=== PATIENT | male | born 1975 | race Caucasian/White ===

== ENCOUNTER 2017-07-08 18:37 | Emergency (ER) | payer SELFPAY ==
[~2017-07-08] VITALS: Ht 190.5 cm; Wt 110.0 kg
[~2017-07-08 18:37] MED LIST: COUM5TAB PO; ENOX100P SQ
[2017-07-08] MEDS ORDERED: IOHEXOL 350 MG/ML 10 ML VIAL (for RAD DIAG) IVCONTRAST ONE (18:38)
[2017-07-08 19:10] VITALS: BP 134/88; PULSE 136; RESP 26; TEMP 98.3; O2SAT 97
[2017-07-08] MEDS ORDERED: SODIUM CHLOR 0.9% 1000 ML INJ 1,000 ML IV SCH ×2 (20:35)
--- NOTE | 2017-07-08 20:39 | PD ---
HPI Chief Complaint: Respiratory Symptoms Time Seen by Provider: 20:32 Travel History International Travel<30 days: No Contact w/Intl Traveler<30days: No Traveled to known affect area: No History of Present Illness HPI This is a 41-year-old male who presents for evaluation of cough, shortness of breath. Symptoms started 3 weeks ago. The cough is dry but occasionally productive yellow sputum. He reports that he was seen at an outside urgent care 8 days ago, diagnosed with pneumonia and prescribed ciprofloxacin for 7 days, prednisone for 5 days and albuterol tablets. Symptoms have persisted despite continuing antibiotic therapy and this is what prompted evaluation today. He reports that initially 3 weeks ago he was having fevers but none this week last week. He endorses some sharp chest pain when he coughs and breathes in deep. 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 He used to be treated with Coumadin however he was incarcerated for 4 years, released in December 2016, not currently under the therapy of any physician and not currently anticoagulated. He has no known history of hypercoagulopathy that he is aware of. Denies any history of PE. Denies any lower extremity edema. He has no other complaints at this time. PFSH Past Medical History Cancer: No Cardiovascular Problems: No Deep Vein Thrombosis: Yes Endocrine: No Genitourinary: No Musculoskeletal: No Neurologic: No Psychiatric: No Reproductive: No Respiratory: No Immunizations Current: No Social History Alcohol Use: Yes (VERY RARELY) Tobacco Use: Yes (3 PPD) Substance Use: Yes (POT AND COCAINE) Allergies-Medications (Allergen,Severity, Reaction): Coded Allergies: No Known Allergies (Verified Adverse Reaction, Unknown, 07/08/17) Reported Meds & Prescriptions Reported Meds & Active Scripts Active Reported Lovenox (Enoxaparin Sodium) 100 Mg/Ml Inj 100 Mg SQ BID discontinue when inr is greater than 3 Coumadin (Warfarin Sodium) 5 Mg Tab 5 Mg PO DAILY Review of Systems Except as stated in HPI: all other systems reviewed are Neg Physical Exam Narrative GENERAL: Well-developed well-nourished male in no acute distress. Tachycardic. SKIN: Warm and dry. HEAD: Atraumatic. Normocephalic. EYES: Pupils equal and round. No scleral icterus. No injection or drainage. ENT: No nasal bleeding or discharge. Mucous membranes pink and moist. Thrush noted in the oropharynx. NECK: Trachea midline. No JVD. CARDIOVASCULAR: Regular rate and rhythm. No murmur appreciated. RESPIRATORY: No accessory muscle use. Coarse breath sounds bilaterally. GASTROINTESTINAL: Abdomen soft, non-tender, nondistended. Hepatic and splenic margins not palpable. MUSCULOSKELETAL: No obvious deformities. No clubbing. No cyanosis. No edema. NEUROLOGICAL: Awake and alert. No obvious cranial nerve deficits. Motor grossly within normal limits. Normal speech. PSYCHIATRIC: Appropriate mood and affect; insight and judgment normal. Data Data Last Documented VS Vital Signs Date Time Temp Pulse Resp B/P (MAP) Pulse Ox O2 Delivery O2 Flow Rate FiO2 07/08/17 23:07 07/08/17 22:33 130 22 92 Room Air 07/08/17 21:37 98.7 07/08/17 21:16 2.00 Orders Orders Electrocardiogram (07/08/17 20:35) Basic Metabolic Panel (Bmp) (07/08/17 20:35) Ckmb (Isoenzyme) Profile (07/08/17 20:35) Complete Blood Count With Diff (07/08/17 20:35) Magnesium (Mg) (07/08/17 20:35) Prothrombin Time / Inr (Pt) (07/08/17 20:35) Act Partial Throm Time (Ptt) (07/08/17 20:35) Troponin I (07/08/17 20:35) Ecg Monitoring (07/08/17 20:35) Bilateral Bp Monitoring (07/08/17 20:35) Iv Access Insert/Monitor (07/08/17 20:35) Oximetry (07/08/17 20:35) Oxygen Administration (07/08/17 20:35) Sodium Chloride 0.9% Flush (Ns Flush) (07/08/17 20:45) Ct Pulmonary Angiogram (07/08/17 20:35) Chest, Pa & Lat (07/08/17 20:35) Sepsis Workup Initiated (07/08/17 ) Lactic Acid Sepsis Protocol (07/08/17 20:35) Influenzae A/B Antigen (07/08/17 20:35) Blood Culture (07/08/17 20:35) Hiv Antibody Screen (07/08/17 20:35) Sodium Chlor 0.9% 1000 Ml Inj (Ns 1000 M (07/08/17 20:35) Sodium Chlor 0.9% 1000 Ml Inj (Ns 1000 M (07/08/17 20:35) Nystatin Liq (Mycostatin Liq) (07/08/17 20:45) B-Type Natriuretic Peptide (07/08/17 20:57) CKMB (07/08/17 21:05) CKMB% (07/08/17 21:05) Ceftriaxone Inj (Rocephin Inj) (07/08/17 22:30) Azithromycin Inj (Zithromax Inj) (07/08/17 22:30) Iohexol 350 Inj (Omnipaque 350 Inj) (07/08/17 18:38) Labs Laboratory Tests Test 07/08/17 21:05 White Blood Count 14.1 TH/MM3 Red Blood Count 4.50 MIL/MM3 Hemoglobin 14.5 GM/DL Hematocrit 42.6 % Mean Corpuscular Volume 94.8 FL Mean Corpuscular Hemoglobin 32.2 PG Mean Corpuscular Hemoglobin Concent 34.0 % Red Cell Distribution Width 14.0 % Platelet Count 403 TH/MM3 Mean Platelet Volume 8.4 FL Neutrophils (%) (Auto) 69.6 % Lymphocytes (%) (Auto) 21.4 % Monocytes (%) (Auto) 7.2 % Eosinophils (%) (Auto) 1.5 % Basophils (%) (Auto) 0.3 % Neutrophils # (Auto) 9.8 TH/MM3 Lymphocytes # (Auto) 3.0 TH/MM3 Monocytes # (Auto) 1.0 TH/MM3 Eosinophils # (Auto) 0.2 TH/MM3 Basophils # (Auto) 0.0 TH/MM3 CBC Comment DIFF FINAL Differential Comment Prothrombin Time 10.6 SEC Prothromb Time International Ratio 1.0 RATIO Activated Partial Thromboplast Time 24.2 SEC Blood Urea Nitrogen 9 MG/DL Creatinine 1.13 MG/DL Random Glucose 96 MG/DL Calcium Level 8.1 MG/DL Magnesium Level 2.2 MG/DL Sodium Level 143 MEQ/L Potassium Level 3.7 MEQ/L Chloride Level 112 MEQ/L Carbon Dioxide Level 20.7 MEQ/L Anion Gap 10 MEQ/L Estimat Glomerular Filtration Rate 72 ML/MIN Lactic Acid Level 2.0 mmol/L Total Creatine Kinase 751 U/L Creatine Kinase MB 5.6 NG/ML Creatine Kinase MB % 0.7 % Troponin I 0.15 NG/ML B-Type Natriuretic Peptide 825 PG/ML HIV (1&2) Ab and P24 Ag, 4th Gener NONREACTIVE MDM Medical Decision Making Medical Screen Exam Complete: Yes Emergency Medical Condition: Yes Medical Record Reviewed: Yes Differential Diagnosis Pneumonia, bronchitis, reactive airway disease, pulmonary embolism, COPD Narrative Course The patient was placed on ECG monitoring pulse oximetry. A 12-lead EKG was obtained. Lab work, chest x-ray, CT pulmonary angiogram ordered. He will be given IV fluids. Examination reveals thrush in the oropharynx, recently incarcerated for 4 years, no known history of HIV or other communicable disease. He denies any history of IV drug use. HIV antibody has been ordered, he consented. Chest x-ray reveals cardiomegaly with bilateral mostly perihilar airspace disease and septal thickening. Primary differential diagnosis is pulmonary edema, possibly from congestive heart failure. More dense consolidation on the right may represent a superimposed pneumonia. Initially 2 L of IV fluids have been ordered however given these findings, the IV fluids have been halted after 300 mL of normal saline was administered. BNP has been added onto the lab work. CBC reveals a WBC count of 14.1. The patient was given IV Rocephin and azithromycin. CMP reveals total CK 751, CK-MB 5.6, troponin 0 0.15, BNP 825. Lactic acid is 2. Ultimately this patient will require admission. He is somewhat hesitant with admission and has insinuated to his significant other that he may end up leaving AMA in order to go to work in the morning however currently he is cautiously agreeable to admission. He is somewhat unpredictable, somewhat paranoid as well. Signed out to Dr. Singleton pending CT pulmonary angiogram results. 2300: The patient abruptly eloped from the ED. His girlfriend attempted to convince him to stay however he refused and briskly walked out of the ED. He refused to stay long enough to appliance counselor him thoroughly on this decision however earlier in his hospital stay I did discuss with him the current results of his tests including new cardiomyopathy, elevated troponin, pulmonary embolism, pneumonia and elevated troponin and I discussed with him the potential dire consequences of these diagnoses including arrhythmia, sudden cardiac , sepsis. In addition although he was somewhat unpredictable in his behavior during his hospital stay he did not meet Ruiz act criteria and he had mental capacity to make the decision to leave. AMA: The risks of leaving against medical advice without further evaluation treatment were discussed with the patient. These risks include cardiac dysfunction, cardiac dysrhythmia, possible heart attack, possible stroke or . The patient indicated understanding of these risks and appeared to have the capacity to make this decision. Diagnosis Primary Impression: Cardiomyopathy Additional Impressions: Pulmonary edema Pneumonia Elevated troponin Left against medical advice Med/Other Pt SpecificInfo: No Change to Meds Disposition: 07 AGAINST MEDICAL ADVICE Condition: Stable Adi Dash July 08, 2017 20:39
[2017-07-08] MEDS ORDERED: NYSTATIN SUSP 500,000 U/5 ML CUP SWISH-SWAL ONE (20:45)
[2017-07-08] MEDS ORDERED: SODIUM CHLORIDE 0.9% FLUSH 10 ML FLUSH IVF PRN (20:45)
[2017-07-08 21:00] VITALS: BP 120/80; PULSE 133; RESP 26; O2SAT 96
--- NOTE | 2017-07-08 21:08 | PD ---
Physical Exam Narrative General: The patient is a well-developed well-nourished male, uncomfortable appearing on arrival with a frequent dry cough. Head and Neck exam: Head is normocephalic atraumatic. Eyes: EOMI, pupils are equal round and reactive to light. Nose: Midline septum with pink mucous membranes Mouth: Dentition unremarkable. Moist mucus membranes. Posterior oropharynx is mildly erythematous with white patches noted consistent with thrush. No tonsillar hypertrophy. Uvula midline. Airway patent. Neck: No palpable lymphadenopathy. No nuchal rigidity. No thyromegaly. Cardiovascular: Sinus tachycardia in the 130s without murmurs, gallops, or rubs. No pulse deficit to the extremities on simultaneous auscultation and palpation of his radial artery. Lungs: The patient has crackles audible in bilateral lung valiente. No wheezes or rhonchi audible. The patient is a frequent dry sounding cough on exam. Abdomen: Soft, without tenderness to palpation in all 4 quadrants of the abdomen. No guarding, rebound, or rigidity. Normal bowel sounds are audible. No tenderness on palpation of McBurney's point. Extremities: No clubbing or cyanosis. The patient has trace pedal edema on the right lower extremity compared to the left. He reports having chronic swelling in that leg is been present since prior to having a DVT diagnosed in it previously. 2+ pulses in all 4 extremities. Neurologic Exam: Grossly nonfocal. Skin Exam: No rash noted. Intact skin that is warm and dry. Data Data Last Documented VS Vital Signs Date Time Temp Pulse Resp B/P (MAP) Pulse Ox O2 Delivery O2 Flow Rate FiO2 07/08/17 23:07 07/08/17 22:33 130 22 92 Room Air 07/08/17 21:37 98.7 07/08/17 21:16 2.00 Orders Orders Electrocardiogram (07/08/17 20:35) Basic Metabolic Panel (Bmp) (07/08/17 20:35) Ckmb (Isoenzyme) Profile (07/08/17 20:35) Complete Blood Count With Diff (07/08/17 20:35) Magnesium (Mg) (07/08/17 20:35) Prothrombin Time / Inr (Pt) (07/08/17 20:35) Act Partial Throm Time (Ptt) (07/08/17 20:35) Troponin I (07/08/17 20:35) Ecg Monitoring (07/08/17 20:35) Bilateral Bp Monitoring (07/08/17 20:35) Iv Access Insert/Monitor (07/08/17 20:35) Oximetry (07/08/17 20:35) Oxygen Administration (07/08/17 20:35) Sodium Chloride 0.9% Flush (Ns Flush) (07/08/17 20:45) Ct Pulmonary Angiogram (07/08/17 20:35) Chest, Pa & Lat (07/08/17 20:35) Sepsis Workup Initiated (07/08/17 ) Lactic Acid Sepsis Protocol (07/08/17 20:35) Influenzae A/B Antigen (07/08/17 20:35) Blood Culture (07/08/17 20:35) Hiv Antibody Screen (07/08/17 20:35) Sodium Chlor 0.9% 1000 Ml Inj (Ns 1000 M (07/08/17 20:35) Sodium Chlor 0.9% 1000 Ml Inj (Ns 1000 M (07/08/17 20:35) Nystatin Liq (Mycostatin Liq) (07/08/17 20:45) B-Type Natriuretic Peptide (07/08/17 20:57) CKMB (07/08/17 21:05) CKMB% (07/08/17 21:05) Ceftriaxone Inj (Rocephin Inj) (07/08/17 22:30) Azithromycin Inj (Zithromax Inj) (07/08/17 22:30) Iohexol 350 Inj (Omnipaque 350 Inj) (07/08/17 18:38) Labs Laboratory Tests Test 07/08/17 21:05 White Blood Count 14.1 TH/MM3 Red Blood Count 4.50 MIL/MM3 Hemoglobin 14.5 GM/DL Hematocrit 42.6 % Mean Corpuscular Volume 94.8 FL Mean Corpuscular Hemoglobin 32.2 PG Mean Corpuscular Hemoglobin Concent 34.0 % Red Cell Distribution Width 14.0 % Platelet Count 403 TH/MM3 Mean Platelet Volume 8.4 FL Neutrophils (%) (Auto) 69.6 % Lymphocytes (%) (Auto) 21.4 % Monocytes (%) (Auto) 7.2 % Eosinophils (%) (Auto) 1.5 % Basophils (%) (Auto) 0.3 % Neutrophils # (Auto) 9.8 TH/MM3 Lymphocytes # (Auto) 3.0 TH/MM3 Monocytes # (Auto) 1.0 TH/MM3 Eosinophils # (Auto) 0.2 TH/MM3 Basophils # (Auto) 0.0 TH/MM3 CBC Comment DIFF FINAL Differential Comment Prothrombin Time 10.6 SEC Prothromb Time International Ratio 1.0 RATIO Activated Partial Thromboplast Time 24.2 SEC Blood Urea Nitrogen 9 MG/DL Creatinine 1.13 MG/DL Random Glucose 96 MG/DL Calcium Level 8.1 MG/DL Magnesium Level 2.2 MG/DL Sodium Level 143 MEQ/L Potassium Level 3.7 MEQ/L Chloride Level 112 MEQ/L Carbon Dioxide Level 20.7 MEQ/L Anion Gap 10 MEQ/L Estimat Glomerular Filtration Rate 72 ML/MIN Lactic Acid Level 2.0 mmol/L Total Creatine Kinase 751 U/L Creatine Kinase MB 5.6 NG/ML Creatine Kinase MB % 0.7 % Troponin I 0.15 NG/ML B-Type Natriuretic Peptide 825 PG/ML HIV (1&2) Ab and P24 Ag, 4th Gener NONREACTIVE MDM Medical Record Reviewed: Yes Supervised Visit with MARIANN: Yes Narrative Course I, Dr. Singleton, have reviewed the advance practice practitioner's documentation and am in agreement, met with the patient face to face, made the diagnosis, and the medical decision making was done by me. The patient was initially evaluated by Adi. Please see their complete history and physical. *My assessment and Findings: The patient presents with a history of cough, congestion, shortness of breath that began 3 weeks ago. The patient's past medical history is significant for having 3 prior DVTs. The patient is not currently on anticoagulation. The patient reports that he has been seen regarding the symptoms and diagnosed with pneumonia. The patient was started on antibiotic, however he continued to have symptoms. During the course of the patient's emergency department visit, the patient's history, examination, and differential diagnosis were reviewed with the patient. The patient was placed on a air control/anti air warfare officer with oximetry and frequent blood pressure monitoring. The patient had IV access obtained and blood work sent for analysis. The patient had a EKG done on arrival that shows a sinus tachycardia heart rate of 133, QRS duration is 91 ms, QTC [address] segment elevation is noted. The patient was initially provided Normal saline IV fluids, however after the chest x-ray was reviewed these were stopped due to in appearance on chest x-ray of possible pulmonary edema. The patient was given nystatin for thrush. The patient was started on Rocephin and Zithromax for suspected pneumonia peer The patient's laboratory studies were reviewed and remarkable for 07/08/17 21:05 Calcium Level 8.1 L, Magnesium Level 2.2. The patient will patient's initial set of cardiac enzymes were remarkable for a CPK of 751 with an MB percent of 0.7, elevated troponin at 0.15, BNP elevated at 825. PT PTT unremarkable. Radiology studies were reviewed and remarkable for Last Impressions Chest X-Ray [id number]/08/[id number] Signed Impressions: Service Date/Time: Saturday, July 08, 2017 20:49 - CONCLUSION: 1. Cardiomegaly with bilateral mostly perihilar airspace disease and septal thickening. Primary differential diagnosis is pulmonary edema, possibly from congestive heart failure. More dense consolidation on the right may represent a superimposed pneumonia. Neel Edwards MD CT Angiography [id number] Signed Impressions: Service Date/Time: Saturday, July 08, 2017 22:37 - CONCLUSION: Perihilar batwing infiltrates right greater than left possible ARDS. No evidence of pulmonary embolism. Nick Lozano MD The plan was to admit the patient, however the patient decided to leave AGAINST MEDICAL ADVICE prior to the completion of his workup and admission. AMA: The risks of leaving against medical advice without further evaluation treatment were discussed with the patient. These risks include cardiac dysfunction, cardiac dysrhythmia, possible heart attack, respiratory failure, or . The patient indicated understanding of these risks and appeared to have the capacity to make this decision. Disposition: 07 AGAINST MEDICAL ADVICE Condition: Serious Aissatou Singleton MD July 08, 2017 21:08
--- NOTE | 2017-07-08 21:16 | RADRPT ---
EXAM DATE/TIME: 07/08/2017 20:49 [facility] COMPARISON: No previous studies available for comparison. EXTERNAL COMPARISON : [facility] INDICATIONS : Chest pain with shortness of breath. MEDICAL HISTORY : Smoker. SURGICAL HISTORY : None. ENCOUNTER: Initial ACUITY: 3 weeks PAIN SCORE: 6/10 LOCATION: Bilateral chest FINDINGS: Heart size is enlarged. There is bilateral airspace disease, worse on the right space in the perihila r region. There is interlobular septal thickening. Trace pleural fluid. CONCLUSION: 1. Cardiomegaly with bilateral mostly perihilar airspace disease and septal thickening. Primary diffe rential diagnosis is pulmonary edema, possibly from congestive heart failure. More dense consolidatio n on the right may represent a superimposed pneumonia. Neel Edwards MD on July 08, 2017 at 21:13 Board Certified Radiologist. This report was verified electronically.
[2017-07-08 21:27] LABS: AUTOMATED NEUTROPHIL # 9.8 TH/MM3 (1.8-7.7); BASOPHIL % 0.3 % (0.0-2.0); EOSINOPHIL # 0.2 TH/MM3 (0-0.4); EOSINOPHIL % 1.5 % (0.0-4.0); HEMATOCRIT 42.6 % (39.0-51.0); HEMOGLOBIN 14.5 GM/DL (13.0-17.0); LYMPH % 21.4 % (9.0-44.0); MEAN CELL VOLUME 94.8 FL (80.0-100.0); MEAN CORPUSCULAR HEMOGLOBIN 32.2 PG (27.0-34.0); MEAN PLATELET VOLUME 8.4 FL (7.0-11.0); MONO % 7.2 % (0.0-8.0); NEUT % 69.6 % (16.0-70.0); PLATELET COUNT 403 TH/MM3 (150-450); WHITE BLOOD COUNT 14.1 TH/MM3 (4.0-11.0)
[2017-07-08 21:37] VITALS: TEMP 98.7
[2017-07-08 21:53] LABS: BICARBONATE 20.7 MEQ/L (21.0-32.0); CALCIUM 8.1 MG/DL (8.5-10.1); CREATININE 1.13 MG/DL (0.60-1.30); MAGNESIUM 2.2 MG/DL (1.5-2.5)
[2017-07-08 21:54] LABS: PROTHROMBIN TIME - PATIENT 10.6 SEC (9.8-11.6)
[2017-07-08 21:57] LABS: TROPONIN I 0.15 NG/ML (0.02-0.05)
[2017-07-08] MEDS ORDERED: cefTRIAXone INJ 2,000 MG in SODIUM CHLORIDE 0.9% INJ 100 ML IV ONE (22:30)
[2017-07-08] MEDS ORDERED: AZITHROMYCIN INJ 500 MG in SODIUM CHLOR 0.9% 250 ML INJ 250 ML IV ONE (22:30)
[2017-07-08 22:33] VITALS: BP 124/82; PULSE 130; RESP 22; O2SAT 92
--- NOTE | 2017-07-08 23:13 | RADRPT ---
EXAM DATE/TIME: 07/08/2017 22:37 [facility] COMPARISON: No previous studies available for comparison. INDICATIONS : Evaluate for pulomnary embolism. IV CONTRAST: 75 cc Omnipaque 350 (iohexol) IV RADIATION DOSE: 10.70 CTDIvol (mGy) MEDICAL HISTORY : Deep venous thrombosis. SURGICAL HISTORY : None. ENCOUNTER: Initial ACUITY: 1 day PAIN SCALE: 3/10 LOCATION: chest TECHNIQUE: Volumetric scanning of the chest was performed using a pulmonary embolism protocol MIP images were re constructed. Using automated exposure control and adjustment of the mA and/or kV according to patien t size, radiation dose was kept as low as reasonably achievable to obtain optimal diagnostic quality images. DICOM format image data is available electronically for review and comparison. Follow-up recommendations for detected pulmonary nodules are based at a minimum on nodule size and pa tient risk factors according to Fleischner Society Guidelines. FINDINGS: PULMONARY ARTERIES: No filling defects are seen in the pulmonary arteries through the segmental level. LUNGS: There significant areas of perihilar and central parenchymal areas of consolidation can be seen in pa tient's with ARDS right lung worse than left. PLEURAE: There is no pleural thickening or pleural effusion. MEDIASTINUM: There is good visualization of the great vessels of the middle mediastinum. No evidence of mediastin al or hilar adenopathy/mass. MUSCULOSKELETAL: Within normal limits for patient age. MISCELLANEOUS: The visualized upper abdominal organs demonstrate no acute abnormality. CONCLUSION: Perihilar batwing infiltrates right greater than left possible ARDS. No evidence of pulmonary embolis medhat Lozano MD on July 08, 2017 at 23:11 Board Certified Radiologist. This report was verified electronically.
--- NOTE | 2017-07-09 11:09 | EKG ---
Date Performed: 07/08/2017 Time Performed: 21:06:27 PTAGE: 41 years EKG: SINUS TACHYCARDIA WITH SHORT WI INTERVAL NONSPECIFIC T-WAVE ABNORMALITY ABNORMAL RHYTHM ECG INTERPRETATION BASED ON A DEFAULT AGE OF 41 YEARS PREVIOUS TRACING : 04/13/2013 18.49 DOCTOR: Nick Knott Interpretating Date/Time 07/09/2017 11:08:41
== END 2017-07-08 23:02 | disposition left against medical advice (07) ==
LOC: NEPE 18:37
DX: I42.9 Cardiomyopathy, unspecified (principal); J81.1 Chronic pulmonary edema; J18.9 Pneumonia, unspecified organism; B37.9 Candidiasis, unspecified; R79.89 Other specified abnormal findings of blood chemistry; R94.31 Abnormal electrocardiogram [ECG] [EKG]; F17.210 Nicotine dependence, cigarettes, uncomplicated; F12.90 Cannabis use, unspecified, uncomplicated; F14.90 Cocaine use, unspecified, uncomplicated; Z86.718 Personal history of other venous thrombosis and embolism; Z53.21 Procedure and treatment not carried out due to patient leaving prior to being seen by health care provider
CPT/HCPCS: 71046; 71275; 80048; 82550; 82552; 83605; 83735; 83880; 84484; 85025; 85610; 85730; 86703; 87040; 87804; 93005; 96365; 96367; 99285; J0456; J0696; J7030; J7050; Q9967